=== PATIENT | male | born 1980 | race Caucasian/White ===

== ENCOUNTER 2023-01-24 14:27 | Inpatient (IN) ==
[2023-01-24] MEDS ORDERED: Polyethylene Glycol 3350 17 GM PACKET PO PRN (16:16)
[2023-01-24] MEDS ORDERED: Ondansetron 4 mg VIAL 2 MG/ML 2 ml VIAL IV PRN (16:16)
[2023-01-24 16:42] LABS: ABS Basophils 0.1 10^3/uL (0.0-0.1); ABS Eosinophils 0.1 10^3/uL (0.0-0.5); ABS Lymphocytes 1.6 10^3/uL (1.0-4.8); ABS Monocytes 0.5 10^3/uL (0.0-1.1); ABS Neutrophils 3.9 10^3/uL (1.5-7.6); ABS Nucleated RBC 0.01 10^3/ul; Eosinophil % 1.3 %; Hematocrit 37.3 % (38-53); Lymphocyte % 26.1 %; Mean Corpuscular Hemoglobin 31.1 pg (27-33); Mean Corpuscular Hgb Conc 34.9 g/dL (31-36); Mean Corpuscular Volume 89.1 fL (80-97); Mean Platelet Volume 7.4 fL (7.5-11.2); Nucleated Red Blood Cells % 0.1 /100 WBC (0.0-0.4); Platelet Count 275 10^3/uL (150-450); Red Blood Count 4.19 10^6/uL (4.06-5.63); Red Cell Distribution Width 14.4 % (12-17); White Blood Count 6.1 10^3/uL (3.6-10.2)
[2023-01-24 17:05] LABS: Albumin/Globulin Ratio 1.9 (1-3); Calcium 9.6 mg/dL (8.6-10.3); Creatinine, Serum 0.94 mg/dL (0.67-1.17); Globulin 2.1 g/dL (2-4); Potassium 3.8 mmol/L (3.5-5.0); Total Bilirubin 0.3 mg/dL (0.2-1.0); Total Protein 6.1 g/dL (6.4-8.9); eGFR CKD-EPI 101.9 (>60)
[2023-01-24] MEDS: NS 0.9% 1000 ml BAG 1,000 ML IV SCH (19:14)
[2023-01-24] MEDS ORDERED: Albuterol HFA INHALER 8 gm MDI INH PRN (20:18)
[2023-01-25] MEDS: NS 0.9% 1000 ml BAG 1,000 ML IV SCH (05:22)
[2023-01-25 08:33] LABS: ABS Basophils 0.1 10^3/uL (0.0-0.1); ABS Monocytes 0.2 10^3/uL (0.0-1.1); ABS Neutrophils 6.7 10^3/uL (1.5-7.6); Eosinophil % 0.1 %; Hematocrit 40.2 % (38-53); Hemoglobin 14.2 g/dL (13.2-16.3); Mean Corpuscular Hemoglobin 31.2 pg (27-33); Mean Corpuscular Hgb Conc 35.2 g/dL (31-36); Mean Corpuscular Volume 88.7 fL (80-97); Mean Platelet Volume 7.7 fL (7.5-11.2); Platelet Count 291 10^3/uL (150-450); Red Blood Count 4.54 10^6/uL (4.06-5.63); Red Cell Distribution Width 14.4 % (12-17)
[2023-01-25 08:50] LABS: Albumin/Globulin Ratio 1.9 (1-3); Calcium 9.2 mg/dL (8.6-10.3); Creatinine, Serum 0.9 mg/dL (0.67-1.17); Globulin 2.1 g/dL (2-4); Magnesium 1.8 mg/dL (1.9-2.7); Phosphorus 4.1 mg/dL (2.5-5.0); Potassium 4.7 mmol/L (3.5-5.0); Total Bilirubin 0.4 mg/dL (0.2-1.0); Total Protein 6.1 g/dL (6.4-8.9); eGFR CKD-EPI 107.3 (>60)
[2023-01-25] MEDS ORDERED: Dexamethasone IV 4 MG/ML VIAL 1 ml VIAL IV SLOW PU ONE (09:00)
[2023-01-25] MEDS ORDERED: PALONOSETRON HCL 0.05 MG/ML (0.25 MG) SYRINGE (0.05 MG/ML) IV ONE (09:00)
[2023-01-25] MEDS: Thiamine IV 100 MG in NS 0.9% 50 ML Q24H IV SCH ×3 (09:35→19:45)
[2023-01-25] MEDS ORDERED: ETOPOSIDE IVPB ONE (10:00)
[2023-01-25] MEDS ORDERED: NS 0.9% IVPB ONE ×3 (10:00→12:00)
[2023-01-25] MEDS ORDERED: CARBOPLATIN IVPB ONE (10:30)
[2023-01-25] MEDS ORDERED: NS 0.9% 1000 ml BAG 1,000 ML IV ONE (11:00)
[2023-01-25] MEDS ORDERED: IFOSFAMIDE IVPB ONE (12:00)
[2023-01-25] MEDS ORDERED: MESNA IVPB ONE (12:00)
[2023-01-25] MEDS ORDERED: NS 0.9% 1000 ml BAG 1,000 ML IV SCH (12:00)
[2023-01-25 12:04] LABS: Uric Acid 2.7 mg/dL (4.4-7.6)
[2023-01-25] MEDS ORDERED: Lorazepam PYXIS KEY PRN (12:46)
[2023-01-25] MEDS: LORazepam 2 mg VIAL 1 ml IV PUSH PRN ×2 (13:00→18:28)
[2023-01-25] MEDS: Prochlorperazine 5 mg/ml 2 ml VIAL (10 mg) IV PRN (18:28)
[2023-01-26] MEDS: Thiamine IV 100 MG in NS 0.9% 50 ML Q24H IV SCH ×4 (03:02→20:00)
[2023-01-26 06:15] LABS: ABS Lymphocytes 0.9 10^3/uL (1.0-4.8); ABS Monocytes 0.7 10^3/uL (0.0-1.1); ABS Neutrophils 6.9 10^3/uL (1.5-7.6); ABS Nucleated RBC 0.01 10^3/ul; Eosinophil % 0.1 %; Hematocrit 35.8 % (38-53); Hemoglobin 12.6 g/dL (13.2-16.3); Mean Corpuscular Hemoglobin 31.3 pg (27-33); Mean Corpuscular Hgb Conc 35.3 g/dL (31-36); Mean Corpuscular Volume 88.7 fL (80-97); Mean Platelet Volume 8.3 fL (7.5-11.2); Nucleated Red Blood Cells % 0.1 /100 WBC (0.0-0.4); Platelet Count 228 10^3/uL (150-450); Red Blood Count 4.04 10^6/uL (4.06-5.63); Red Cell Distribution Width 14.2 % (12-17); White Blood Count 8.5 10^3/uL (3.6-10.2)
[2023-01-26 06:29] LABS: Albumin 3.3 g/dL (3.2-5.2); Albumin/Globulin Ratio 1.8 (1-3); Calcium 8.5 mg/dL (8.6-10.3); Creatinine, Serum 0.74 mg/dL (0.67-1.17); Globulin 1.8 g/dL (2-4); Potassium 3.9 mmol/L (3.5-5.0); Total Bilirubin 0.5 mg/dL (0.2-1.0); Total Protein 5.1 g/dL (6.4-8.9); eGFR CKD-EPI 113.9 (>60)
[2023-01-26] MEDS ORDERED: Dexamethasone IV 4 MG/ML VIAL 1 ml VIAL IV SLOW PU ONE (09:00)
[2023-01-26] MEDS ORDERED: NS 0.9% 1000 ml BAG 1,000 ML IV ONE (12:00)
[2023-01-26] MEDS ORDERED: NS 0.9% IVPB ONE (13:00)
[2023-01-26] MEDS ORDERED: ETOPOSIDE IVPB ONE (13:00)
[2023-01-26] MEDS: Prochlorperazine 5 mg/ml 2 ml VIAL (10 mg) IV PRN (19:51)
[2023-01-27] MEDS: Thiamine IV 100 MG in NS 0.9% 50 ML Q24H IV SCH ×4 (02:20→21:46)
[2023-01-27 05:57] LABS: ABS Lymphocytes 0.9 10^3/uL (1.0-4.8); ABS Monocytes 0.5 10^3/uL (0.0-1.1); ABS Neutrophils 6.8 10^3/uL (1.5-7.6); Eosinophil % 0.1 %; Hematocrit 35.7 % (38-53); Hemoglobin 12.3 g/dL (13.2-16.3); Lymphocyte % 10.6 %; Mean Corpuscular Hemoglobin 31.3 pg (27-33); Mean Corpuscular Hgb Conc 34.4 g/dL (31-36); Mean Corpuscular Volume 90.9 fL (80-97); Mean Platelet Volume 8.4 fL (7.5-11.2); Platelet Count 221 10^3/uL (150-450); Red Blood Count 3.93 10^6/uL (4.06-5.63); Red Cell Distribution Width 14.3 % (12-17); White Blood Count 8.2 10^3/uL (3.6-10.2)
[2023-01-27 06:13] LABS: Albumin 3.4 g/dL (3.2-5.2); Albumin/Globulin Ratio 1.9 (1-3); Calcium 8.8 mg/dL (8.6-10.3); Creatinine, Serum 0.73 mg/dL (0.67-1.17); Globulin 1.8 g/dL (2-4); Magnesium 1.7 mg/dL (1.9-2.7); Phosphorus 3.5 mg/dL (2.5-5.0); Potassium 3.8 mmol/L (3.5-5.0); Total Bilirubin 0.5 mg/dL (0.2-1.0); Total Protein 5.2 g/dL (6.4-8.9); eGFR CKD-EPI 114.3 (>60)
[2023-01-27] MEDS ORDERED: Ondansetron 4 mg VIAL 2 MG/ML 2 ml VIAL IV PRN (09:00)
[2023-01-27] MEDS ORDERED: methylPREDNISolone SOD SUCC 125 mg 2 ML VIAL IV ONE (09:00)
[2023-01-27] MEDS ORDERED: NS 0.9% IVPB ONE ×2 (10:00→12:00)
[2023-01-27] MEDS ORDERED: ETOPOSIDE IVPB ONE (10:00)
[2023-01-27] MEDS ORDERED: Famotidine IV 10 MG/ML 2 ml VIAL (20 mg) IV ONE (11:00)
[2023-01-27] MEDS ORDERED: RITUXIMAB ABBS IVPB ONE (12:00)
[2023-01-27] MEDS: LORazepam 2 mg VIAL 1 ml IV PUSH PRN ×2 (16:56→22:16)
[2023-01-28] MEDS: Thiamine IV 100 MG in NS 0.9% 50 ML Q24H IV SCH ×2 (03:18→11:09)
[2023-01-28 06:51] LABS: ABS Lymphocytes 0.6 10^3/uL (1.0-4.8); ABS Monocytes 0.1 10^3/uL (0.0-1.1); Eosinophil % 0.2 %; Hematocrit 37.1 % (38-53); Lymphocyte % 9.4 %; Mean Corpuscular Hemoglobin 31.4 pg (27-33); Mean Corpuscular Volume 89.8 fL (80-97); Mean Platelet Volume 7.8 fL (7.5-11.2); Platelet Count 192 10^3/uL (150-450); Red Blood Count 4.13 10^6/uL (4.06-5.63); Red Cell Distribution Width 14.7 % (12-17); White Blood Count 6.8 10^3/uL (3.6-10.2)
[2023-01-28 07:07] LABS: Albumin 3.8 g/dL (3.2-5.2); Albumin/Globulin Ratio 1.7 (1-3); Creatinine, Serum 0.99 mg/dL (0.67-1.17); Globulin 2.3 g/dL (2-4); Magnesium 1.9 mg/dL (1.9-2.7); Phosphorus 2.8 mg/dL (2.5-5.0); Potassium 3.6 mmol/L (3.5-5.0); Total Bilirubin 0.5 mg/dL (0.2-1.0); Total Protein 6.1 g/dL (6.4-8.9); eGFR CKD-EPI 95.7 (>60)
[2023-01-28 10:10] VITALS: BP 115/69
== END 2023-01-28 14:30 | disposition home or self-care (01) | DRG 696 ==
LOC: MED 16:05 → SUATTDRO 16:05 → MED 01-27 05:26
PROVIDERS: ADMIT Internal Medicine; ATTEND Internal Medicine Hospice and Palliative Medicine

== ENCOUNTER 2023-02-17 08:07 | Inpatient (IN) ==
[~2023-02-17 08:07] MED LIST: ETOPOSIDE IVPB SCH; NS 0.9% IVPB SCH; RITUXIMAB ABBS IVPB SCH
[2023-02-17] MEDS ORDERED: Ondansetron 4 mg VIAL 2 MG/ML 2 ml VIAL IV PRN (08:38)
[2023-02-17] MEDS ORDERED: LORazepam 2 mg VIAL 1 ml IV PUSH PRN (08:51)
[2023-02-17] MEDS ORDERED: Lorazepam PYXIS KEY PRN (08:51)
[2023-02-17 09:07] LABS: ABS Lymphocytes 0.9 10^3/uL (1.0-4.8); ABS Monocytes 0.9 10^3/uL (0.0-1.1); ABS Neutrophils 7.6 10^3/uL (1.5-7.6); Eosinophil % 0.1 %; Hematocrit 29.8 % (38-53); Hemoglobin 10.7 g/dL (13.2-16.3); Lymphocyte % 9.9 %; Mean Corpuscular Hemoglobin 31.5 pg (27-33); Mean Corpuscular Hgb Conc 35.8 g/dL (31-36); Mean Platelet Volume 6.8 fL (7.5-11.2); Platelet Count 560 10^3/uL (150-450); Red Blood Count 3.39 10^6/uL (4.06-5.63); White Blood Count 9.5 10^3/uL (3.6-10.2)
[2023-02-17 09:22] LABS: Albumin 3.9 g/dL (3.2-5.2); Albumin/Globulin Ratio 1.5 (1-3); Calcium 8.9 mg/dL (8.6-10.3); Creatinine, Serum 0.79 mg/dL (0.67-1.17); Globulin 2.6 g/dL (2-4); Magnesium 1.8 mg/dL (1.9-2.7); Phosphorus 3.2 mg/dL (2.5-5.0); Potassium 4.2 mmol/L (3.5-5.0); Total Bilirubin 0.3 mg/dL (0.2-1.0); Total Protein 6.5 g/dL (6.4-8.9); Uric Acid 3.8 mg/dL (4.4-7.6); eGFR CKD-EPI 111.6 (>60)
[2023-02-17] MEDS ORDERED: methylPREDNISolone SOD SUCC 125 mg 2 ML VIAL ONE (09:42)
[2023-02-17] MEDS ORDERED: diphenhydrAMINE 50 MG/ML INJ SYRINGE *CHOA ONE (09:43)
[2023-02-17] MEDS ORDERED: Famotidine IV 10 MG/ML 2 ml VIAL (20 mg) ONE (09:43)
[2023-02-17] MEDS ORDERED: NS 0.9% IVPB ONE ×2 (11:00)
[2023-02-17] MEDS ORDERED: Famotidine IV 10 MG/ML 2 ml VIAL (20 mg) IV ONE (11:00)
[2023-02-17] MEDS ORDERED: ETOPOSIDE IVPB ONE (11:00)
[2023-02-17] MEDS ORDERED: methylPREDNISolone SOD SUCC 125 mg 2 ML VIAL IV ONE (11:00)
[2023-02-17] MEDS ORDERED: RITUXIMAB ABBS IVPB ONE (11:00)
[2023-02-17] MEDS: NS 0.9% 1000 ml BAG 1,000 ML IV ONE (16:44)
[2023-02-17] MEDS: NS 0.9% 1000 ml BAG 1,000 ML IV SCH (16:53)
[2023-02-17] MEDS ORDERED: Albuterol HFA INHALER 8 gm MDI INH PRN (17:34)
[2023-02-17] MEDS ORDERED: Thiamine 100 MG/ML 2 ml VIAL 100 MG in NS 0.9% 50 ML 50 ML IV SCH (18:00)
[2023-02-17] MEDS: Sulfamethox/Trimethoprim DS TAB 800/160 mg PO SCH (20:03)
[2023-02-17] MEDS: Thiamine 100 MG/ML 2 ml VIAL 100 MG in NS 0.9% 50 ML 50 ML IV SCH (21:06)
[2023-02-17] MEDS: Enoxaparin 40 MG/0.4 ML SYR SUBCUT SCH (21:31)
[2023-02-18] MEDS: Thiamine 100 MG/ML 2 ml VIAL 100 MG in NS 0.9% 50 ML 50 ML IV SCH ×4 (02:00→20:08)
[2023-02-18] MEDS: NS 0.9% 1000 ml BAG 1,000 ML IV SCH ×2 (03:34→12:26)
[2023-02-18 05:38] LABS: ABS Lymphocytes 0.5 10^3/uL (1.0-4.8); ABS Monocytes 0.7 10^3/uL (0.0-1.1); ABS Neutrophils 5.9 10^3/uL (1.5-7.6); ABS Nucleated RBC 0.01 10^3/ul; Hemoglobin 9.9 g/dL (13.2-16.3); Lymphocyte % 6.6 %; Mean Corpuscular Hemoglobin 31.2 pg (27-33); Mean Corpuscular Hgb Conc 35.4 g/dL (31-36); Mean Platelet Volume 6.9 fL (7.5-11.2); Nucleated Red Blood Cells % 0.1 /100 WBC (0.0-0.4); Platelet Count 478 10^3/uL (150-450); Red Blood Count 3.18 10^6/uL (4.06-5.63); Red Cell Distribution Width 14.1 % (12-17); White Blood Count 7.1 10^3/uL (3.6-10.2)
[2023-02-18 06:01] LABS: Albumin 3.3 g/dL (3.2-5.2); Albumin/Globulin Ratio 1.4 (1-3); Calcium 8.6 mg/dL (8.6-10.3); Creatinine, Serum 0.7 mg/dL (0.67-1.17); Globulin 2.3 g/dL (2-4); Potassium 4.5 mmol/L (3.5-5.0); Total Bilirubin 0.3 mg/dL (0.2-1.0); Total Protein 5.6 g/dL (6.4-8.9); eGFR CKD-EPI 115.8 (>60)
[2023-02-18] MEDS ORDERED: PALONOSETRON HCL 0.05 MG/ML (0.25 MG) SYRINGE (0.05 MG/ML) IV ONE (09:00)
[2023-02-18] MEDS ORDERED: ETOPOSIDE IVPB ONE (10:00)
[2023-02-18] MEDS ORDERED: NS 0.9% IVPB ONE ×4 (10:00→11:30)
[2023-02-18] MEDS: Dexamethasone IV 4 MG/ML VIAL 1 ml VIAL IV SLOW PU SCH (10:03)
[2023-02-18] MEDS ORDERED: CARBOPLATIN IVPB ONE ×2 (10:30)
[2023-02-18] MEDS: NS 0.9% 1000 ml BAG 1,000 ML IV ONE (11:08)
[2023-02-18] MEDS ORDERED: IFOSFAMIDE IVPB ONE (11:30)
[2023-02-18] MEDS ORDERED: MESNA IVPB ONE (11:30)
[2023-02-18] MEDS: Enoxaparin 40 MG/0.4 ML SYR SUBCUT SCH (20:08)
[2023-02-18] MEDS ORDERED: Magnesium Sulfate 2 gm BAG 2 GM/50 ML BAG IVPB ONE (20:23)
[2023-02-19] MEDS: NS 0.9% 1000 ml BAG 1,000 ML IV SCH (02:22)
[2023-02-19] MEDS: Thiamine 100 MG/ML 2 ml VIAL 100 MG in NS 0.9% 50 ML 50 ML IV SCH ×3 (02:23→15:27)
[2023-02-19 08:08] LABS: ABS Lymphocytes 0.7 10^3/uL (1.0-4.8); ABS Monocytes 0.6 10^3/uL (0.0-1.1); Hematocrit 25.2 % (38-53); Lymphocyte % 10.6 %; Mean Corpuscular Hemoglobin 31.7 pg (27-33); Mean Corpuscular Hgb Conc 35.8 g/dL (31-36); Mean Corpuscular Volume 88.7 fL (80-97); Mean Platelet Volume 7.1 fL (7.5-11.2); Platelet Count 456 10^3/uL (150-450); Red Blood Count 2.84 10^6/uL (4.06-5.63); Red Cell Distribution Width 14.1 % (12-17); White Blood Count 6.3 10^3/uL (3.6-10.2)
[2023-02-19 08:16] LABS: Albumin 3.1 g/dL (3.2-5.2); Albumin/Globulin Ratio 1.6 (1-3); Calcium 7.8 mg/dL (8.6-10.3); Creatinine, Serum 0.72 mg/dL (0.67-1.17); Globulin 1.9 g/dL (2-4); Potassium 3.8 mmol/L (3.5-5.0); Total Bilirubin 0.1 mg/dL (0.2-1.0); eGFR CKD-EPI 114.8 (>60)
[2023-02-19] MEDS: Dexamethasone IV 4 MG/ML VIAL 1 ml VIAL IV SLOW PU SCH (09:04)
[2023-02-19] MEDS: Sulfamethox/Trimethoprim DS TAB 800/160 mg PO SCH (09:18)
[2023-02-19] MEDS ORDERED: ETOPOSIDE IVPB ONE (11:30)
[2023-02-19] MEDS ORDERED: NS 0.9% IVPB ONE (11:30)
[2023-02-19] MEDS ORDERED: NS 0.9% 1000 ml BAG 1,000 ML IV ONE (11:30)
[2023-02-19 14:12] VITALS: BP 103/58
== END 2023-02-19 17:00 | disposition home or self-care (01) | DRG 696 ==
LOC: CHOA 08:07 → MEDTELE 16:30
PROVIDERS: ADMIT Internal Medicine Hematology & Oncology; ATTEND Internal Medicine Hematology & Oncology

== ENCOUNTER 2023-03-10 08:12 | Inpatient (IN) ==
[2023-03-10 08:58] LABS: ABS Lymphocytes 0.8 10^3/uL (1.0-4.8); ABS Monocytes 1.3 10^3/uL (0.0-1.1); ABS Neutrophils 13.2 10^3/uL (1.5-7.6); ABS Nucleated RBC 0.01 10^3/ul; Eosinophil % 0.2 %; Hematocrit 22.9 % (38-53); Hemoglobin 8.2 g/dL (13.2-16.3); Mean Corpuscular Hemoglobin 31.2 pg (27-33); Mean Corpuscular Hgb Conc 35.8 g/dL (31-36); Mean Corpuscular Volume 87.1 fL (80-97); Mean Platelet Volume 7.1 fL (7.5-11.2); Nucleated Red Blood Cells % 0.1 /100 WBC (0.0-0.4); Platelet Count 298 10^3/uL (150-450); Red Blood Count 2.64 10^6/uL (4.06-5.63); Red Cell Distribution Width 14.1 % (12-17); White Blood Count 15.4 10^3/uL (3.6-10.2)
[2023-03-10 09:28] LABS: Albumin 3.6 g/dL (3.2-5.2); Albumin/Globulin Ratio 1.2 (1-3); Calcium 8.7 mg/dL (8.6-10.3); Creatinine, Serum 0.81 mg/dL (0.67-1.17); Globulin 2.9 g/dL (2-4); Magnesium 1.6 mg/dL (1.9-2.7); Potassium 4.2 mmol/L (3.5-5.0); Total Bilirubin 0.2 mg/dL (0.2-1.0); Total Protein 6.5 g/dL (6.4-8.9); eGFR CKD-EPI 110.8 (>60)
[2023-03-10] MEDS ORDERED: Famotidine IV 10 MG/ML 2 ml VIAL (20 mg) IV ONE (10:00)
[2023-03-10] MEDS ORDERED: methylPREDNISolone SOD SUCC 125 mg 2 ML VIAL IV ONE (10:00)
[2023-03-10] MEDS ORDERED: NS 0.9% IVPB ONE ×2 (11:00→14:00)
[2023-03-10] MEDS ORDERED: RITUXIMAB ABBS IVPB ONE (11:00)
[2023-03-10] MEDS ORDERED: HYDROcodone/ACETAMIN 5/325 mg TAB ONE (12:30)
[2023-03-10] MEDS: HYDROcodone/ACETAMIN 5/325 mg TAB PO PRN ×2 (12:40→18:31)
[2023-03-10] MEDS ORDERED: ETOPOSIDE IVPB ONE (14:00)
[2023-03-10] MEDS ORDERED: Albuterol HFA INHALER 8 gm MDI INH PRN (16:56)
[2023-03-10] MEDS ORDERED: Ondansetron ODT 4 mg TAB 4 MG TAB PO PRN (17:52)
[2023-03-10] MEDS: Thiamine 100 MG/ML 2 ml VIAL 100 MG in NS 0.9% 50 ML 50 ML IV SCH ×2 (18:27→23:51)
[2023-03-10] MEDS: NS 0.9% 1000 ml BAG 1,000 ML IV SCH (18:27)
[2023-03-11] MEDS: HYDROcodone/ACETAMIN 5/325 mg TAB PO PRN ×4 (00:21→22:01)
[2023-03-11] MEDS: Thiamine 100 MG/ML 2 ml VIAL 100 MG in NS 0.9% 50 ML 50 ML IV SCH ×3 (05:15→18:15)
[2023-03-11 05:34] LABS: ABS Lymphocytes 0.4 10^3/uL (1.0-4.8); ABS Monocytes 0.9 10^3/uL (0.0-1.1); ABS Neutrophils 11.4 10^3/uL (1.5-7.6); Hematocrit 21.4 % (38-53); Hemoglobin 7.6 g/dL (13.2-16.3); Lymphocyte % 3.1 %; Mean Corpuscular Hemoglobin 31.3 pg (27-33); Mean Corpuscular Hgb Conc 35.8 g/dL (31-36); Mean Corpuscular Volume 87.5 fL (80-97); Mean Platelet Volume 7.5 fL (7.5-11.2); Platelet Count 303 10^3/uL (150-450); Red Blood Count 2.44 10^6/uL (4.06-5.63); Red Cell Distribution Width 14.1 % (12-17); White Blood Count 12.7 10^3/uL (3.6-10.2)
[2023-03-11 05:49] LABS: Albumin 3.3 g/dL (3.2-5.2); Calcium 8.4 mg/dL (8.6-10.3); Potassium 4.5 mmol/L (3.5-5.0); Total Bilirubin 0.2 mg/dL (0.2-1.0)
[2023-03-11 05:55] LABS: Albumin/Globulin Ratio 1.2 (1-3); Creatinine, Serum 0.73 mg/dL (0.67-1.17); Globulin 2.7 g/dL (2-4); eGFR CKD-EPI 114.3 (>60)
[2023-03-11] MEDS: NS 0.9% 1000 ml BAG 1,000 ML IV SCH ×3 (07:54→20:46)
[2023-03-11] MEDS ORDERED: PALONOSETRON HCL 0.05 MG/ML (0.25 MG) SYRINGE (0.05 MG/ML) IV ONE (09:00)
[2023-03-11] MEDS: Dexamethasone IV 4 MG/ML VIAL 1 ml VIAL IV SLOW PU SCH (09:35)
[2023-03-11] MEDS ORDERED: CARBOPLATIN IVPB ONE (10:30)
[2023-03-11] MEDS ORDERED: NS 0.9% IVPB ONE (10:30)
[2023-03-11] MEDS ORDERED: NS 0.9% 1000 ml BAG 1,000 ML IV ONE (11:00)
[2023-03-11] MEDS: ETOPOSIDE IVPB SCH (11:20)
[2023-03-11] MEDS: NS 0.9% IVPB SCH (11:20)
[2023-03-11] MEDS ORDERED: [UNRECOGNIZED DRUG - OTHER] IVPB ONE (12:00)
[2023-03-11] MEDS ORDERED: MESNA IVPB ONE (12:00)
[2023-03-11] MEDS ORDERED: IFOSFAMIDE IVPB ONE (12:00)
[2023-03-12] MEDS: Thiamine 100 MG/ML 2 ml VIAL 100 MG in NS 0.9% 50 ML 50 ML IV SCH ×3 (00:11→11:48)
[2023-03-12] MEDS: HYDROcodone/ACETAMIN 5/325 mg TAB PO PRN ×2 (06:10→15:45)
[2023-03-12 06:21] LABS: ABS Lymphocytes 0.5 10^3/uL (1.0-4.8); ABS Monocytes 0.6 10^3/uL (0.0-1.1); ABS Nucleated RBC 0.01 10^3/ul; Hematocrit 20.5 % (38-53); Hemoglobin 7.1 g/dL (13.2-16.3); Lymphocyte % 4.1 %; Mean Corpuscular Hemoglobin 30.6 pg (27-33); Mean Corpuscular Hgb Conc 34.8 g/dL (31-36); Mean Corpuscular Volume 88.1 fL (80-97); Mean Platelet Volume 7.6 fL (7.5-11.2); Platelet Count 295 10^3/uL (150-450); Red Blood Count 2.32 10^6/uL (4.06-5.63); Red Cell Distribution Width 14.6 % (12-17); White Blood Count 12.1 10^3/uL (3.6-10.2)
[2023-03-12 06:45] LABS: Albumin 3.2 g/dL (3.2-5.2); Albumin/Globulin Ratio 1.5 (1-3); Creatinine, Serum 0.66 mg/dL (0.67-1.17); Globulin 2.2 g/dL (2-4); Potassium 3.8 mmol/L (3.5-5.0); Total Bilirubin 0.2 mg/dL (0.2-1.0); Total Protein 5.4 g/dL (6.4-8.9); eGFR CKD-EPI 117.9 (>60)
[2023-03-12] MEDS ORDERED: Sulfamethox/Trimethoprim DS TAB 800/160 mg PO SCH (09:00)
[2023-03-12] MEDS: Dexamethasone IV 4 MG/ML VIAL 1 ml VIAL IV SLOW PU SCH (09:26)
[2023-03-12] MEDS: NS 0.9% 1000 ml BAG 1,000 ML IV SCH (11:17)
[2023-03-12] MEDS ORDERED: NS 0.9% 1000 ml BAG 1,000 ML IV ONE (12:00)
[2023-03-12] MEDS: NS 0.9% IVPB SCH (15:00)
[2023-03-12] MEDS: ETOPOSIDE IVPB SCH (15:00)
[2023-03-12 17:12] VITALS: BP 93/50
== END 2023-03-12 17:25 | disposition home or self-care (01) | DRG 696 ==
LOC: CHOA 08:12 → MED 16:32
PROVIDERS: ADMIT Internal Medicine Hematology & Oncology; ATTEND Internal Medicine Hematology & Oncology